=== PATIENT | male | born 1960 | race Caucasian/White ===

== ENCOUNTER 2016-05-08 20:22 | Inpatient (IN) | payer MEDICARE, OTHER ==
[~2016-05-08] VITALS: Ht 188 cm; Wt 125.0 kg
[2016-05-08 20:24] VITALS: BP 178/83; PULSE 119; RESP 20; TEMP 98.2; O2SAT 96
[2016-05-08 21:14] VITALS: BP 136/86; PULSE 96; RESP 20; O2SAT 93
--- NOTE | 2016-05-08 21:42 | RADRPT ---
EXAM DATE/TIME: 05/08/2016 20:45 [place] COMPARISON: No previous studies available for comparison. INDICATIONS : Chest Discomfort, Short of Breath. MEDICAL HISTORY : Congestive heart failure. Pneumonia. SURGICAL HISTORY : None. ENCOUNTER: Initial ACUITY: 1 day PAIN SCORE: 3/10 LOCATION: Bilateral chest FINDINGS: The lungs are clear without infiltrate, nodule, or mass. There is no appreciable pleural effusion fo r technique. Heart and mediastinum are unremarkable. Surgical screw traverses the left glenohumeral joint. CONCLUSION: No acute cardiopulmonary disease. Rafael Richardson MD on May 08, 2016 at 21:40 Board Certified Radiologist. This report was verified electronically.
[2016-05-08] MEDS ORDERED: RESP: ALBUTEROL 2.5 MG/IPRATROPIUM 0.5 MG NEB (SCH) NEB ONE (21:45)
[2016-05-08] MEDS ORDERED: ASPIRIN 81 MG CHEW TAB CHEW ONE (21:45)
[2016-05-08] MEDS ORDERED: NITROGLYCERIN 0.4 MG SL 25 TABS/BTL SL PRN (21:45)
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
[2016-05-08] MEDS ORDERED: LIDO0.052 TOPICAL (21:55)
[2016-05-08] MEDS ORDERED: LISI10TA3 PO (21:55)
[2016-05-08] MEDS ORDERED: ALPR0.5T3 PO (21:55)
[2016-05-08] MEDS ORDERED: VENTAER INH (21:55)
[2016-05-08] MEDS ORDERED: EZET1TAB8 PO (21:55)
[2016-05-08] MEDS ORDERED: ROSU1TAB10 PO (21:55)
[2016-05-08] MEDS ORDERED: LEVO100T5 PO (21:55)
[2016-05-08] MEDS ORDERED: CYCL1TAB29 PO (21:55)
[2016-05-08] MEDS ORDERED: FISH1000 PO (21:55)
[2016-05-08] MEDS ORDERED: [UNRECOGNIZED DRUG - CODE] PO (21:55)
[2016-05-08] MEDS ORDERED: DULO1CAP3 PO (21:55)
[2016-05-08] MEDS ORDERED: MORP1TAB25 PO (21:55)
[2016-05-08] MEDS ORDERED: POTA10TA8 PO (21:55)
[2016-05-08] MEDS ORDERED: ASCO500T PO (21:55)
[2016-05-08] MEDS ORDERED: MULT1CHW70 PO (21:55)
[2016-05-08] MEDS ORDERED: DICL1GEL7 TOPICAL (21:55)
[2016-05-08] MEDS ORDERED: OXYC-395 PO (21:55)
[2016-05-08] MEDS ORDERED: ISOS30TA3 PO (21:55)
[2016-05-08] MEDS ORDERED: ASPI81CH CHEW (21:55)
[2016-05-08] MEDS ORDERED: FURO20TA PO (21:55)
[2016-05-08 22:00] VITALS: BP 151/79; PULSE 82; RESP 20; O2SAT 94
[2016-05-08 22:13] LABS: AUTOMATED NEUTROPHIL # 4.7 TH/MM3 (1.8-7.7); BASOPHIL % 0.4 % (0.0-2.0); EOSINOPHIL # 0.2 TH/MM3 (0-0.4); HEMATOCRIT 38.5 % (39.0-51.0); HEMO FLAGS DIFF FINAL; LYMPH % 31.6 % (9.0-44.0); LYMPHOCYTE # 2.5 TH/MM3 (1.0-4.8); MEAN CORPUSCULAR HEMOGLOBIN 28.7 PG (27.0-34.0); MEAN CORPUSCULAR HGB CONC 34.2 % (32.0-36.0); PLATELET COUNT 269 TH/MM3 (150-450); RED BLOOD COUNT 4.59 MIL/MM3 (4.50-5.90); RED CELL DISTRIBUTION WIDTH 14.8 % (11.6-17.2); WHITE BLOOD COUNT 7.8 TH/MM3 (4.0-11.0)
[2016-05-08 22:38] LABS: BICARBONATE 30.3 MEQ/L (21.0-32.0); POTASSIUM 3.4 MEQ/L (3.5-5.1)
[2016-05-08] MEDS ORDERED: NITROGLYCERIN 2% OINT 1 GM PACKET TOPICAL ONE (23:15)
[2016-05-08] MEDS ORDERED: ONDANSETRON HCL 4 MG/2 ML VIAL IV PUSH ONE (23:15)
[2016-05-08] MEDS ORDERED: MORPHINE SULFATE 4 MG/ML INJ IV PUSH ONE (23:15)
[2016-05-08 23:49] VITALS: BP 167/72; PULSE 86; RESP 20; O2SAT 95
[2016-05-09] VITALS (9 sets, daily range): BP systolic 125–160; BP diastolic 76–99; PULSE 80–98; RESP 16–20; TEMP 97.6–98.1; O2SAT 93–100
[2016-05-09] MEDS ORDERED: RESP: ALBUTEROL 2.5 MG/IPRATROPIUM 0.5 MG NEB (SCH) NEB ONE
[2016-05-09] MEDS ORDERED: methylPREDNISolone SOD SUCC 125 MG/2 ML VIAL IV PUSH ONE
[2016-05-09] MEDS ORDERED: RESP: ALBUTEROL 2.5 MG/IPRATROPIUM 0.5 MG NEB (PRN) NEB (00:15)
[2016-05-09] MEDS ORDERED: NALOXONE HCL 0.4 MG/ML AMP IV PRN (00:15)
[2016-05-09] MEDS ORDERED: SODIUM CHLORIDE 0.9% FLUSH 5 ML FLUSH FLUSH PRN (00:15)
[2016-05-09] MEDS ORDERED: POTASSIUM CHLORIDE 20 MEQ CONTROLLED RELEASE TAB PO ONE ×2 (00:15→00:30)
[2016-05-09] MEDS ORDERED: ENOXAPARIN SODIUM 120 MG/0.8 ML SYRINGE SQ ONE (00:30)
[2016-05-09] MEDS ORDERED: SODIUM CHLORIDE 0.9% FLUSH 5 ML FLUSH IVF PRN ×2 (00:30→16:15)
[2016-05-09 00:31] LABS: APTT (PATIENT) 25.5 SEC (24.3-30.1); PROTHROMBIN TIME - PATIENT 10.5 SEC (9.8-11.6)
[2016-05-09] MEDS: RESP: ALBUTEROL 2.5 MG/IPRATROPIUM 0.5 MG NEB (SCH) NEB ×2 (03:18→07:41)
[2016-05-09] MEDS ORDERED: ALPRAZolam 0.5 MG TAB PO PRN (08:15)
[2016-05-09] MEDS ORDERED: ALBUTEROL SULFATE 90 MCG/ACT HFA 8 GM INHALER INH PRN (08:15)
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
[2016-05-09] MEDS: CYCLOBENZAPRINE HCL 10 MG TAB PO SCH ×2 (08:56→12:54)
[2016-05-09] MEDS ORDERED: LEVOTHYROXINE SODIUM 100 MCG TAB PO SCH (09:00)
[2016-05-09] MEDS ORDERED: ASPIRIN 81 MG CHEW TAB CHEW SCH (09:00)
[2016-05-09] MEDS ORDERED: LISINOPRIL 10 MG TAB PO SCH (09:00)
[2016-05-09] MEDS ORDERED: EZETIMIBE 10 MG TAB PO SCH (09:00)
[2016-05-09] MEDS: LIDOCAINE 4% CREAM 5 GM TUBE TOPICAL SCH ×2 (09:00→12:54)
[2016-05-09] MEDS ORDERED: POTASSIUM CHLORIDE 10 MEQ CONTROLLED RELEASE TAB PO SCH (09:00)
[2016-05-09] MEDS ORDERED: SODIUM CHLORIDE 0.9% FLUSH 5 ML FLUSH IVF SCH ×2 (09:00→21:00)
[2016-05-09] MEDS ORDERED: SODIUM CHLORIDE 0.9% FLUSH 5 ML FLUSH FLUSH SCH (09:00)
[2016-05-09] MEDS ORDERED: ISOSORBIDE MONONITRATE 30 MG TAB PO SCH (09:00)
[2016-05-09] MEDS ORDERED: ATORVASTATIN 80 MG TAB PO SCH (09:00)
[2016-05-09] MEDS ORDERED: MORPHINE SULFATE 30 MG CONTROLLED RELEASE TAB PO SCH (09:00)
[2016-05-09] MEDS ORDERED: SODIUM CHLOR 0.9% 1000 ML INJ 1,000 ML IV SCH (09:00)
[2016-05-09] MEDS ORDERED: DULoxetine HCl DR 60 MG CAP PO SCH (09:00)
[2016-05-09] MEDS ORDERED: FUROSEMIDE 20 MG TAB PO SCH (09:00)
--- NOTE | 2016-05-09 15:16 | MB ---
cc: COLTON HARDIN M.D. DATE OF CONSULTATION: 05/09/2016 HISTORY OF PRESENT ILLNESS Andre is a very pleasant 56-year-old gentleman. He states he has a history of coronary disease, had a cath remotely which showed "50%" blockage. He presents to the ER with chief complaint of chest pain, left shoulder pain and arm pain associated with shortness of breath, worsening over the prior two days prior to admission. Otherwise denies any fevers, chills, cough, or GI bleeding, PND, orthopnea, syncope or dizziness. PAST MEDICAL/SURGICAL HISTORY 1. Per history of present illness. 2. Hypertension. 3. COPD. 4. Tobacco use. 5. Dyslipidemia. 6. CHF. 7. Appendectomy. 8. Orchiopexy. 9. Anxiety. 10.Depression. 11.Small cell skin cancer. 12.PTSD. 13.Chronic back pain. 14.Spinal compression neuropathy. 15.Appendectomy. 16.Testicular torsion. He is followed at the [facility]. SOCIAL HISTORY He does smoke. Denies alcohol use. ALLERGIES 1. ADHESIVES. 2. BETADINE. MEDICATIONS Medications in the hospital: 1. Aspirin 81 mg daily. 2. Cyclobenzaprine 10 mg t.i.d. 3. Doxycycline 60, daily. 4. Zetia 10, daily. 5. Lasix 20, daily. 6. Isosorbide 30, daily. 7. Levothyroxine 100, p.o. daily. 8. Lisinopril 10,daily. 9. Morphine 30 mg q.8h. 10.Potassium chloride 10, daily. 11.Atorvastatin 80, daily. 12.Albuterol. 13.Xanax p.r.n. PHYSICAL EXAMINATION VITAL SIGNS: Blood pressure 140/76, pulse 90, respiratory rate 16, temperature 97.7. GENERAL: He is alert and oriented x3, in no acute distress. NECK: Supple. No JVD. No bruit. CARDIOVASCULAR: S1, S2. No murmurs, rubs or gallops. LUNGS: Clear to auscultation bilaterally. ABDOMEN: Soft, nontender, nondistended. Positive bowel sounds. EXTREMITIES: No lower extremity edema. LABORATORY DATA White count 7.8, hemoglobin 13.2, hematocrit 38.5, platelet count 269. Troponin is 0.08 followed by 0.07 and 0.08. Sodium 142, potassium 3.4, chloride 103, bicarb 30.3, BUN 10, creatinine 1.08. BNP is 23. INR is 1.0. IMAGING DATA Chest x-ray: No acute cardiopulmonary process. EKG DATA EKG shows sinus tachycardia at 110 beats per minute, nonspecific ST-T wave changes. DIAGNOSIS 1. NSTEMI. 2. Coronary artery disease. 3. History of CHF. 4. Hyperglycemia. 5. Tobacco use. DISCUSSION Left heart catheterization is medically necessary on an urgent basis due to a non-STEMI, [place] Cardiovascular Society class IV angina, unstable angina, acute coronary syndrome, history of coronary artery disease, new onset chest pain. Agree with aspirin, Lipitor and ABA inhibitor. Beta taye held due to COPD. Strongly recommend smoking cessation. Colton Hardin MD AWC/BRENDA /2:18 PM /2:52 PM
[2016-05-09] MEDS ORDERED: HEPARIN-NS/PF INJ 500 ML ONE (15:38)
[2016-05-09] MEDS ORDERED: MIDAZOLAM HCL 2 MG/2 ML VIAL ONE (15:41)
[2016-05-09] MEDS ORDERED: IOHEXOL 350 MG/ML 100 ML BTL (for Cath Lab) OTHER ONE (16:00)
[2016-05-09] MEDS ORDERED: MISC INFORMATION XX ONE (16:15)
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
--- NOTE | 2016-05-09 22:40 | EKG ---
Date Performed: 05/09/2016 Time Performed: 09:17:45 PTAGE: 56 years EKG: SINUS TACHYCARDIA ABNORMAL RHYTHM ECG PREVIOUS TRACING : 05/09/2016 04.09 DOCTOR: Elsy Holman Interpretating Date/Time 05/09/2016 22:38:50
--- NOTE | 2016-05-09 23:07 | EKG ---
Date Performed: 05/09/2016 Time Performed: 04:09:30 PTAGE: 56 years EKG: Sinus rhythm WITH SHORT NV INTERVAL BORDERLINE ECG PREVIOUS TRACING : 05/08/2016 20.42 DOCTOR: Elsy Holman Interpretating Date/Time 05/09/2016 23:05:33
--- NOTE | 2016-05-09 23:17 | EKG ---
Date Performed: 05/08/2016 Time Performed: 20:42:59 PTAGE: 56 years EKG: SINUS TACHYCARDIA MINIMAL ST DEPRESSION ABNORMAL RHYTHM ECG NO PREVIOUS TRACING DOCTOR: Elsy Holman Interpretating Date/Time 05/09/2016 23:14:38
--- NOTE | 2016-05-11 09:18 | MA ---
cc: COLTON HARDIN M.D. DATE: 05/09/2016 PROCEDURE: Left heart catheterization, left ventriculography, coronary artery. INDICATIONS Non-STEMI, coronary artery disease, tobacco use, hypertension, multiple cardiac risk factors. DESCRIPTION OF PROCEDURE: The patient was brought to the Cardiac Catheterization Laboratory, prepped and draped in the usual sterile fashion. 10 cc of 1% lidocaine was used to locally anesthetize the right common femoral artery. A 4 Nigerian sheath was successfully placed in the right common femoral artery. 4 Nigerian JR4 and JL4 catheters were used to perform left and right coronary angiography and left ventriculography. FINDINGS: LV pressure is 110/12/15, ejection fraction 60%. The right coronary artery is dominant, has mild diffuse disease in the proximal mid segment up to 10 to 20% angiographically. The right PDA has a proximal 10 to 20% stenosis. The left main coronary artery has a tapering to about 30% distally, best seen in the caudal views. It is probably a 7 millimeter vessel at the ostium and a 5 to 6 millimeter vessel at the distal segment. The left circumflex vessel has no significant disease angiographically. The first obtuse marginal vessel is a small to medium size vessel with no significant disease angiographically. The second obtuse marginal vessel is a small vessel with no significant disease angiographically. The left circumflex vessel terminates into two small posterolateral arteries. There is no significant disease angiographically. The LAD is transapical, has mild diffuse disease in the mid segment, 10 to 20% angiographically. There is a third obtuse marginal vessel which is a medium size vessel approaching the apex, no significant disease angiographically. CONCLUSIONS: 1. Mild three vessel and mild left main coronary artery disease as detailed above. Hyperdynamic LV systolic function of 70%. 2. Recommend smoking cessation. 3. Aspirin 81 milligrams daily. 4. Treat lipids. 5. CP guidelines. Colton Hardin MD [facility]/ELIZ /4:10 PM /9:02 AM
== END 2016-05-09 17:12 | disposition home or self-care (01) | DRG 281 ==
LOC: NEPC 20:22 → INTOOBSV 05-09 00:21 → NEDA 05-09 00:21 → NEPHCDU 05-09 02:55 → OBSVTOIN 05-09 16:12
PROVIDERS: ADMIT Internal Medicine; ATTEND Internal Medicine
PROC: B2151ZZ Fluoroscopy of Left Heart using Low Osmolar Contrast (ICD-10-PCS; 2016-05-09)
PROC: B2111ZZ Fluoroscopy of Multiple Coronary Arteries using Low Osmolar Contrast (ICD-10-PCS; 2016-05-09)
PROC: 4A023N7 Measurement of Cardiac Sampling and Pressure, Left Heart, Percutaneous Approach (ICD-10-PCS; principal; 2016-05-09 15:00)
DX: I21.4 Non-ST elevation (NSTEMI) myocardial infarction (principal); J44.1 Chronic obstructive pulmonary disease with (acute) exacerbation; I50.9 Heart failure, unspecified; I10 Essential (primary) hypertension; I25.119 Atherosclerotic heart disease of native coronary artery with unspecified angina pectoris; E78.5 Hyperlipidemia, unspecified; F41.9 Anxiety disorder, unspecified; F32.9 Major depressive disorder, single episode, unspecified; Z85.828 Personal history of other malignant neoplasm of skin; F43.10 Post-traumatic stress disorder, unspecified; G89.29 Other chronic pain; M54.5 Low back pain; G58.9 Mononeuropathy, unspecified; F17.210 Nicotine dependence, cigarettes, uncomplicated
CPT/HCPCS: 71010; 80048; 82550; 83880; 84484; 85025; 85379; 85610; 85730; 93005; 93458; 94640; 94664; 96374; 96375; C1769; C1893; J1644; J1650; J2250; J2270; J2405; J2930; J7030; Q9967